=== PATIENT | male | born 1990 | race African-American/Black ===

== ENCOUNTER 2018-09-10 10:35 | Emergency (ER) | payer MEDICAID ==
[~2018-09-10] VITALS: Ht 162.6 cm; Wt 55.0 kg
[2018-09-10 10:57] VITALS: BP 108/73
== END 2018-09-10 12:22 | disposition home or self-care (01) ==
LOC: ER 10:35
DX: J02.9 Acute pharyngitis, unspecified (principal); F17.200 Nicotine dependence, unspecified, uncomplicated
CPT/HCPCS: 99282; 99283